=== PATIENT | male | born 1975 | race African-American/Black ===

== ENCOUNTER 2018-10-31 20:21 | Inpatient (IN) | payer OTHER ==
--- NOTE | 2018-10-31 20:42 | PDOC ---
Rapid Medical Evaluation Time Seen by Provider: 10/31/18 20:34 Medical Evaluation: 10/31/18 20:36 I have performed a brief in-person evaluation of this patient. The patient presents with a chief complaint of: Sent in by Dr Eckert for admission for MS flare. Per call in, pt to get solu-medrol Q6H x 3 days and to be admitted. Dr Eckert to be consulted. Pt saw Dr Eckert for first time today and was c/o feeling off balance w/ ataxia and feeling tingling in his feet, c/w his MS per pt. Ran out of meds 4 months ago and never refilled as he has been busy caring for his mother who recently passed. Recently;y moved to [place] from [place] Pertinent physical exam findings:stable, rest of exam deferred to ED provider I have ordered the following:labs/steroids The patient will proceed to the ED for further evaluation. Discharge Disposition - Diagnosis Ataxia - Referrals - Patient Instructions - Post Discharge Activity
[2018-10-31] MEDS ORDERED: methylPREDNISolone NA SUCC 125 MG/2 ML VIAL ONE (21:07)
--- NOTE | 2018-10-31 21:28 | PDOC ---
History of Present Illness - General Chief Complaint: CVA/TIA Stated Complaint: MULTIPLE SCLEROSIS Time Seen by Provider: 10/31/18 20:34 - History of Present Illness Initial Comments: Mr. Varghese is a 43 y/o male with hx of MS (dx 2010), presenting today with six months of worsening blurry vision, imbalance, urinary retention/incontinence, muscle weakness. He recently moved from [place] where he was following with a neurologist and established care with Dr. Eckert today. Sent in by Dr. Eckert for MS exacerbation and admission. He has not been able to consistently take his MS medications over the past several months. 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 Reports weakness. HEAD, EYES, EARS, NOSE AND THROAT: Reports blurry vision. No change in hearing. No sore throat._ CARDIOVASCULAR: No chest pain or shortness of breath_ RESPIRATORY: Denies cough, hemoptysis_ GASTROINTESTINAL: No nausea, vomiting, diarrhea or constipation._ GENITOURINARY: Reports urinary retention and incontinence. MUSCULOSKELETAL: No joint or muscle swelling or pain. No neck or back pain._ SKIN: No rash_ NEUROLOGIC: No headache, vertigo, loss of consciousness. Reports imbalance. ENDOCRINE: No increased thirst. No abnormal weight change_ HEMATOLOGIC/LYMPHATIC: No anemia, easy bleeding, or history of blood clots._ ALLERGIC/IMMUNOLOGIC: No hives or skin allergy._ *Physical Exam - Vital Signs Last Vital Signs Temp Pulse Resp BP Pulse Ox 97.6 F 75 18 116/60 99 10/31/18 20:38 10/31/18 20:38 10/31/18 20:38 10/31/18 20:38 10/31/18 20:38 - Physical Exam Comments: PE GENERAL: Awake, alert, and oriented to person/place/time, in no acute distress_ HEAD: No signs of trauma, normocephalic, atraumatic _ EYES: PERRLA, EOMI, sclera anicteric, conjunctiva clear_ ENT: Hearing grossly normal, nares patent, oropharynx clear without exudates. No uvular deviation. Moist mucosa_ NECK: Normal ROM, supple, no lymphadenopathy, JVD, or masses_ LUNGS: No distress, speaks in full sentences, clear to auscultation bilaterally _ HEART: Regular rate and rhythm, normal S1 and S2, no murmurs appreciated, peripheral pulses normal and equal bilaterally._ ABDOMEN: Soft, pressure on palpation in suprapubic area, normoactive bowel sounds. No guarding, no rebound. No masses_ EXTREMITIES: Normal inspection, Normal range of motion, no edema. No clubbing or cyanosis_ SKIN: Warm, Dry, normal turgor, no rashes or lesions noted_ NEURO CN II-XII tested and intact. Sensation intact to sharp/dull differentiation in all extremities. Motor: Normal tone and bulk. No abnormal movements appreciated. No pronator drift. Strength tested and 4/5 in bilateral wrist flexion/extension, elbow flexion/extension, shoulder abduction, straight leg raise, knee flexion/ extension, ankle dorsiflexion/plantarflexion. Patient has unsteady ambulation and walks with a cane. Coordination: Finger to nose and heel to hendricks testing intact bilaterally. Heart Score/ECG Review - ECG Intrepretation Rhythm: Regular Rhythm Comment:: 62 bpm - [place]: Normal - ECG Impressions Normal ECG: Yes Non-specific ST Elevation: No Ischemic Changes: No Bradycardia: No ED Treatment Course - LABORATORY CBC & Chemistry Diagram: 10/31/18 21:07 10/31/18 21:07 Medical Decision Making - Medical Decision Making 43M with hx of MS diagnosis in 2010, presenting with worsening blurry vision, imbalance, weakness, urinary incontinence/retention. Recently moved from [place] and established care with Dr. Eckert (neurologist) today. Sent in by Dr. Eckert for admission for MS exacerbation. -CBC, CMP, UA, EKG, CXR for admission -solumedrol 250 mg q6h 10/31/18 22:08 Labs and UA reviewed and wnl. *DC/Admit/Observation/Transfer Diagnosis at time of Disposition: Ataxia - Discharge Dispostion Condition at time of disposition: Stable Decision to Admit order: Yes - Referrals Referrals: Teetee Kelley MD [Primary Care Provider] - - Patient Instructions - Post Discharge Activity
[2018-10-31 21:29] LABS: BASO % 0.6 % (0-2.0); EOS % 2.3 % (0-4.5); HEMATOCRIT 40.4 % (35.4-49); LYMPH % 36.4 % (8-40); MCH 30.5 pg (25.7-33.7); MCHC 34.7 g/dl (32.0-35.9); MEAN CELL VOLUME 87.8 fl (80-96); MEAN PLT VOLUME 6.4 fl (7.5-11.1); MONO % 9.9 % (3.8-10.2); NEUT % 50.8 % (42.8-82.8); PLATELET COUNT 271 K/MM3 (134-434); RBC 4.59 M/mm3 (4.00-5.60); RDW 13.1 % (11.9-15.9)
[2018-10-31] MEDS: methylPREDNISolone NA SUCC 125 MG/2 ML VIAL IVPUSH SCH (21:30)
[2018-10-31 21:57] LABS: URINE APPEARANCE CLEAR; URINE BILIRUBIN NEGATIVE (NEGATIVE); URINE COLOR YELLOW; URINE GLUCOSE (UA) NEGATIVE (NEGATIVE); URINE KETONE TRACE (NEGATIVE); URINE LEUK ESTERASE NEGATIVE (NEGATIVE); URINE NITRITE NEGATIVE (NEGATIVE); URINE PROTEIN NEGATIVE (NEGATIVE)
[2018-10-31 21:58] LABS: ALBUMIN 4.1 g/dl (3.4-5.0); CALCIUM 9.4 mg/dL (8.5-10.1); CREATININE 1.1 mg/dL (0.55-1.3); POTASSIUM 3.9 mmol/L (3.5-5.1); TOT PROT 6.7 g/dl (6.4-8.2)
--- NOTE | 2018-10-31 23:43 | PN ---
Teaching Attending Note Name of Resident: Tish Miller ATTENDING PHYSICIAN STATEMENT I saw and evaluated the patient. I reviewed the resident's note and discussed the case with the resident. I agree with the resident's findings and plan as documented. SUBJECTIVE: Patient is a 43 year old man with a PMH of MS (was on tecfidera, intermittent compliance for the past 6 months), who was sent to the ER by Dr. Eckert for further management for MS. The patient reports hes been having 6 months of worsening blurry vision, weakness, lower extremity numbness-tingling, and urinary incontinence. The patient was seen at Dr. Davis office earlier today , from where he was sent to the emergency department for further management. Patient moved to [place] about 6 months ago from [place] and since then hes been poorly compliant with his medication. Denies fever, chills, nausea, vomiting, diarrhea, dysuria or hematuria. Denies alcohol abuse or use of illicit drugs. Nonsmoker. OBJECTIVE: Alert Vital Signs Period Temp Pulse Resp BP Sys/Wong Pulse Ox Last 24 Hr 97.6 F 72-75 16-18 116-125/60-65 99-99 HEENT: No Jaundice, eye redness or discharge, PERRLA, EOMI. Normocephalic, atraumatic. External ears are normal and hearing is grossly intact. No nasal discharge. Neck: Supple, nontender. No palpable adenopathy or thyromegaly. No JVD Chest: Good effort. Clear to auscultation and percussion. Heart: Regular. No S3, rub or murmur Abdomen: Not distended, soft, nontender and no HSM. No rebound or guarding. Normal bowel sounds. Ext: Peripheral pulses intact. No leg edema. Skin: Warm and dry. No petechiae, rash or ecchymosis. Neuro: Alert. Oriented x3. CN 2-12 grossly intact. Sensation grossly intact in all four extremities and DTR are symmetric. Psych: Appropriate mood and affect. Good insight. Current Medications Generic Name Dose Route Start Last Admin Trade Name Freq PRN Reason Stop Dose Admin Enoxaparin Sodium 40 mg 11/01/18 10:00 Lovenox - SQ DAILY [facility] Methylprednisolone Sodium Succinate 250 mg 10/31/18 20:45 10/31/18 21:30 Solu-Medrol - IVPUSH 250 mg Q6H ARLENE Administration Abnormal Lab Results 10/31/18 10/31/18 10/31/18 21:07 21:07 21:07 MPV 6.4 L Chloride 108 H Anion Gap 4 L Urine Ketones Trace H ASSESSMENT AND PLAN: 1. Multiple sclerosis flareup - Patient started on Solumedrol 250 mg IV q 6 hours as recommended by the Neurologist. Will give Protonix 40 mg PO qd. No acute abnormality on CXR. EKG shows NSR with no significant ST-T wave changes. 2. Overweight Counseled on the risks associated with being overweight. Will provide patient all the necessary assistance, counseling and positive reinforcement to facilitate weight loss. Consult sales data analyst. 3. DVT prophylaxis - Lovenox 40 mg SQ q 24 hours. 4. Advance directives - Full code
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
[2018-11-01 01:56] VITALS: BMI 28.8
[2018-11-01] MEDS: methylPREDNISolone NA SUCC 125 MG/2 ML VIAL IVPUSH SCH ×4 (02:54→20:57)
[2018-11-01] MEDS ORDERED: PT OWN MED DRAWER 7, Y5N ONE (04:23)
[2018-11-01 08:21] LABS: BASO % 0.2 % (0-2.0); HEMATOCRIT 43.6 % (35.4-49); HEMOGLOBIN 14.8 GM/dL (11.7-16.9); LYMPH % 10.6 % (8-40); MCH 30.3 pg (25.7-33.7); MEAN CELL VOLUME 89.2 fl (80-96); MEAN PLT VOLUME 7.1 fl (7.5-11.1); MONO % 0.5 % (3.8-10.2); NEUT % 88.7 % (42.8-82.8); PLATELET COUNT 293 K/MM3 (134-434); RBC 4.89 M/mm3 (4.00-5.60); RDW 12.8 % (11.9-15.9); WHITE BLOOD COUNT 4.8 K/mm3 (4.0-10.0)
[2018-11-01 09:01] LABS: ALBUMIN 4.2 g/dl (3.4-5.0); BILIRUBIN,TOTAL 0.9 mg/dL (0.2-1); BLOOD UREA NITROGEN 13.6 mg/dL (7-18); CALCIUM 9.4 mg/dL (8.5-10.1); CREATININE 1.1 mg/dL (0.55-1.3); MAGNESIUM 2.2 mg/dL (1.8-2.4); POTASSIUM 4.1 mmol/L (3.5-5.1)
[2018-11-01] MEDS: ENOXAPARIN NA (PORCINE) 40 MG/0.4 ML DISP.SYRIN SQ SCH (10:01)
--- NOTE | 2018-11-01 10:11 | CON.NEURO ---
Consult - History of Present Illness History of Present Illness: 43 year old man with a PMH of MS (was on tecfidera, intermittent compliance for the past 6 months), who was sent by me first time yesetrday in office for further management for MS. The patient reports hes been having 6 months of worsening blurry vision, weakness, lower extremity numbness-tingling, and urinary incontinence. Patient moved to [place] about 6 months ago from [place] and hasd been on Tecfidera sincve 2012 but ran out of RX apx 2 months ago. Denies fever, chills, nausea, vomiting, diarrhea, dysuria or hematuria. Denies alcohol abuse or use of illicit drugs. Nonsmoker. ++ walking disability, and now needs cane. - Alcohol/Substance Use Hx Alcohol Use: No - Smoking History Smoking history: Never smoked Have you smoked in the past 12 months: No Home Medications - Allergies Allergies/Adverse Reactions: Allergies Allergy/AdvReac Type Severity Reaction Status Date / Time No Known Allergies Allergy Verified 10/31/18 20:42 Physical Exam-Neuro Vital Signs: Vital Signs Temperature 98.2 F 11/01/18 06:09 Pulse Rate 78 11/01/18 06:09 Respiratory Rate 18 11/01/18 06:09 Blood Pressure 109/73 11/01/18 06:09 O2 Sat by Pulse Oximetry (%) 95 11/01/18 06:00 Constitutional: Yes: Well Nourished, No Distress Labs: CBC, BMP 11/01/18 06:20 11/01/18 06:20 - Neuro Exam Level Of Consciousness: Yes: Alert, Oriented to Person (EOmi, no facial, motor 5 /5, inc tone in legs, L >R, brisk reflexes , and requires assitance when he walks ) Problem List - Problems (1) Multiple sclerosis exacerbation Code(s): G35 - MULTIPLE SCLEROSIS (2) Gait abnormality Code(s): R26.9 - UNSPECIFIED ABNORMALITIES OF GAIT AND MOBILITY Assessment/Plan 43 year old man with a PMH of MS (was on tecfidera, intermittent compliance for the past 6 months), who was sent by me first time yesetrday in office for further management for MS. The patient reports hes been having 6 months of worsening blurry vision, weakness, lower extremity numbness-tingling, and urinary incontinence. Patient moved to [place] about 6 months ago from [place] and hasd been on Tecfidera sincve 2012 but ran out of RX apx 2 months ago. Denies fever, chills, nausea, vomiting, diarrhea, dysuria or hematuria. Denies alcohol abuse or use of illicit drugs. Nonsmoker. ++ walking disability, and now needs cane. AP : MS exacerbation, progressive vs relapse started on SOlumedrol IV 250IV q6 x 5 days check MRI BRAIN, C , T spine with VANDA JCV titers, NMO AB, TSH, SKY , ESR, LYme rehab as out pt will decide which immunomodulator to restart Ocreveus vs Mayzent vs Tyzabri DR DAVIS
--- NOTE | 2018-11-01 11:33 | EKG ---
Test Reason : Blood Pressure : / mmHG Vent. Rate : 062 BPM Atrial Rate : 062 BPM P-R Int : 146 ms QRS Dur : 088 ms QT Int : 364 ms P-R-T Axes : 058 052 053 degrees QTc Int : 369 ms NORMAL SINUS RHYTHM NORMAL ECG NO PREVIOUS ECGS AVAILABLE Confirmed by ELEONORA MARQUIS MD ([id number]) on 11/01/2018 11:33:38 AM Referred By: Confirmed By:ELEONORA MARQUIS MD
[2018-11-01] MEDS: GABAPENTIN 300 MG CAPSULE (FP) PO SCH ×2 (11:36→21:00)
--- NOTE | 2018-11-01 13:09 | PN ---
Physical Exam: SUBJECTIVE: Patient seen and examined, overall unchanged, still with left forearm/left leg tingling/numbness, blurry vision and some weakness. OBJECTIVE: Vital Signs Period Temp Pulse Resp BP Sys/Wong Pulse Ox Last 24 Hr 97.5 F-98.2 F 72-78 16-18 109-125/60-80 95-99 Intake & Output 10/29/18 10/30/18 10/31/18 11/01/18 23:59 23:59 23:59 23:59 Intake Total 10 Balance 10 Weight 208 lb 206 lb 6.4 oz GENERAL: lying in bed in no acute distress HEENT: PERRL, EOMI Neck: soft, supple, no JVD Chest: CTAB, no rales or wheezing Abdomen:soft, NT, ND extremities: no edema Neuro: AAOx3, PERRL, EOMI, facial symmetry, speech normal, tongue midline, power 5/5, decreased sensation over left face/left forearm/hand and left leg region, gait not observed Laboratory Results - last 24 hr 10/31/18 10/31/18 10/31/18 21:07 21:07 21:07 WBC 5.0 RBC 4.59 Hgb 14.0 Hct 40.4 MCV 87.8 MCH 30.5 MCHC 34.7 RDW 13.1 Plt Count 271 MPV 6.4 L Absolute Neuts (auto) 2.5 Neutrophils % 50.8 Lymphocytes % 36.4 Monocytes % 9.9 Eosinophils % 2.3 Basophils % 0.6 Nucleated RBC % 0 Sodium 140 Potassium 3.9 Chloride 108 H Carbon Dioxide 29 Anion Gap 4 L BUN 12.0 Creatinine 1.1 Est GFR (CKD-EPI)AfAm 93.47 Est GFR (CKD-EPI)NonAf 80.64 Random Glucose 89 Calcium 9.4 Magnesium Total Bilirubin 1.0 AST 18 ALT 44 Alkaline Phosphatase 80 Total Protein 6.7 Albumin 4.1 Urine Color Yellow Urine Appearance Clear Urine pH 7.0 Ur Specific [place] 1.024 Urine Protein Negative Urine Glucose (UA) Negative Urine Ketones Trace H Urine Blood Negative Urine Nitrite Negative Urine Bilirubin Negative Urine Urobilinogen 1.0 Ur Leukocyte Esterase Negative 11/01/18 11/01/18 06:20 06:20 WBC 4.8 RBC 4.89 Hgb 14.8 Hct 43.6 MCV 89.2 MCH 30.3 MCHC 34.0 RDW 12.8 Plt Count 293 MPV 7.1 L D Absolute Neuts (auto) 4.3 Neutrophils % 88.7 H D Lymphocytes % 10.6 D Monocytes % 0.5 L D Eosinophils % 0.0 D Basophils % 0.2 Nucleated RBC % 0 Sodium 138 Potassium 4.1 Chloride 104 Carbon Dioxide 28 Anion Gap 5 L BUN 13.6 Creatinine 1.1 Est GFR (CKD-EPI)AfAm 93.47 Est GFR (CKD-EPI)NonAf 80.64 Random Glucose 156 H Calcium 9.4 Magnesium 2.2 Total Bilirubin 0.9 AST 19 ALT 45 Alkaline Phosphatase 94 Total Protein 7.0 Albumin 4.2 Urine Color Urine Appearance Urine pH Ur Specific [place] Urine Protein Urine Glucose (UA) Urine Ketones Urine Blood Urine Nitrite Urine Bilirubin Urine Urobilinogen Ur Leukocyte Esterase Active Medications Generic Name Dose Route Start Last Admin Trade Name Freq PRN Reason Stop Dose Admin Enoxaparin Sodium 40 mg 11/01/18 10:00 11/01/18 10:01 Lovenox - SQ 40 mg DAILY ARLENE Administration Gabapentin 300 mg 11/01/18 11:00 11/01/18 11:36 Neurontin - PO 300 mg BID ARLENE Administration Melatonin 3 mg 11/01/18 04:04 Melatonin PO HS PRN INSOMNIA Methylprednisolone Sodium Succinate 250 mg 10/31/18 20:45 11/01/18 08:25 Solu-Medrol - IVPUSH 250 mg Q6H ARLENE Administration ASSESSMENT/PLAN: 43 yom with PMHx of Multiple Sclerosis (2001) prior on tecfidera, recently lost to follow up sent by Dr. Eckert with concerns for MS flare -Multiple sclerosis flare vs progressive disease Plan: Neurology input noted. Solumedrol 250 mg IV q6h x 5 days. Follow up MRI brain/C-spine/T-spine. JCV titers, NMO Ab, TSH, SKY, ESR, lyme DVTPPx Lovenox PT eval Outaptient follow up for immunomodulator. dispo home vs SNF based on clinical course. Visit type - Emergency Visit Emergency Visit: Yes ED Registration Date: 10/31/18 Care time: The patient presented to the Emergency Department on the above date and was hospitalized for further evaluation of their emergent condition. - New Patient This patient is new to me today: Yes Date on this admission: 11/01/18 - Critical Care Critical Care patient: No - Discharge Referral Referred to [facility] No
[2018-11-01] MEDS: ACETAMINOPHEN 325 MG TABLET (FP) PO PRN (15:33)
[2018-11-01] MEDS ORDERED: IBUPROFEN 400 MG TABLET (FP) PO ONE (21:37)
[2018-11-01] MEDS ORDERED: IBUPROFEN 200 MG TABLET PO ONE (22:00)
[2018-11-01] MEDS ORDERED: MELATONIN 1 MG TABLET PO SCH (22:00)
[2018-11-01] MEDS: MELATONIN 1 MG TABLET PO PRN (23:48)
[2018-11-02] MEDS: methylPREDNISolone NA SUCC 125 MG/2 ML VIAL IVPUSH SCH ×4 (02:30→21:14)
[2018-11-02] MEDS ORDERED: PT OWN MED DRAWER 7, Y5N ONE (08:59)
[2018-11-02] MEDS: GABAPENTIN 300 MG CAPSULE (FP) PO SCH ×2 (09:07→22:41)
[2018-11-02] MEDS: PANTOPRAZOLE 40 MG TABLET (FP) PO SCH (09:07)
[2018-11-02] MEDS: ENOXAPARIN NA (PORCINE) 40 MG/0.4 ML DISP.SYRIN SQ SCH (09:14)
[2018-11-02] MEDS: ACETAMINOPHEN 325 MG TABLET (FP) PO PRN ×2 (10:43→22:42)
[2018-11-02] MEDS: MAG HYDROX/AL HYDROX/SIMETH 30 ML UNIT-DOSE CUP PO PRN ×2 (10:43→19:31)
--- NOTE | 2018-11-02 11:00 | PN ---
Progress Note (short form) - Note Progress Note: 43 year old man with a PMH of MS (was on tecfidera, intermittent compliance for the past 6 months), who was sent by me first time yesetrday in office for further management for MS. The patient reports hes been having 6 months of worsening blurry vision, weakness, lower extremity numbness-tingling, and urinary incontinence. Patient moved to [place] about 6 months ago from [place] and hasd been on Tecfidera sincve 2012 but ran out of RX apx 2 months ago. Denies fever, chills, nausea, vomiting, diarrhea, dysuria or hematuria. Denies alcohol abuse or use of illicit drugs. Nonsmoker. ++ walking disability, and now needs cane. 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 - Alcohol/Substance Use Hx Alcohol Use: No - Smoking History Smoking history: Never smoked Have you smoked in the past 12 months: No Home Medications - Allergies Allergies/Adverse Reactions: Allergies Allergy/AdvReac Type Severity Reaction Status Date / Time No Known Allergies Allergy Verified 10/31/18 20:42 Physical Exam-Neuro Vital Signs: Vital Signs Temperature 98.2 F 11/01/18 06:09 Pulse Rate 78 11/01/18 06:09 Respiratory Rate 18 11/01/18 06:09 Blood Pressure 109/73 11/01/18 06:09 O2 Sat by Pulse Oximetry (%) 95 11/01/18 06:00 Constitutional: Yes: Well Nourished, No Distress Labs: CBC, BMP 11/01/18 06:20 11/01/18 06:20 - Neuro Exam Level Of Consciousness: Yes: Alert, Oriented to Person (EOmi, no facial, motor 5 /5, inc tone in legs, L >R, brisk reflexes , and requires assitance when he walks ) Problem List - Problems (1) Multiple sclerosis exacerbation Code(s): G35 - MULTIPLE SCLEROSIS (2) Gait abnormality Code(s): R26.9 - UNSPECIFIED ABNORMALITIES OF GAIT AND MOBILITY Assessment/Plan 43 year old man with a PMH of MS (was on tecfidera, intermittent compliance for the past 6 months), who was sent by me first time yesetrday in office for further management for MS. The patient reports hes been having 6 months of worsening blurry vision, weakness, lower extremity numbness-tingling, and urinary incontinence. Patient moved to [place] about 6 months ago from [place] and hasd been on Tecfidera sincve 2012 but ran out of RX apx 2 months ago. Denies fever, chills, nausea, vomiting, diarrhea, dysuria or hematuria. Denies alcohol abuse or use of illicit drugs. Nonsmoker. ++ walking disability, and now needs cane. 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
--- NOTE | 2018-11-02 11:23 | EKG ---
Test Reason : Blood Pressure : / mmHG Vent. Rate : 077 BPM Atrial Rate : 077 BPM P-R Int : 144 ms QRS Dur : 096 ms QT Int : 340 ms P-R-T Axes : 067 062 063 degrees QTc Int : 384 ms NORMAL SINUS RHYTHM NORMAL ECG WHEN COMPARED WITH ECG OF 31-OCT-2018 20:54, NO SIGNIFICANT CHANGE WAS FOUND Confirmed by ELEONORA MARQUIS MD ([id number]) on 11/02/2018 11:23:42 AM Referred By: Lila TRACEY Confirmed By:ELEONORA MARQUIS MD
--- NOTE | 2018-11-02 11:59 | PN ---
Physical Exam: SUBJECTIVE: Patient seen and examined, tingling/numbness improved. reports some low back pain. But overall better, ambulating. OBJECTIVE: Vital Signs Period Temp Pulse Resp BP Sys/Wong Pulse Ox Last 24 Hr 97.9 F-98.5 F 74-93 18-18 118-138/68-78 96-96 Intake & Output 10/30/18 10/31/18 11/01/18 11/02/18 23:59 23:59 23:59 23:59 Intake Total 810 360 Balance 810 360 Weight 208 lb 206 lb 6.4 oz GENERAL: lying in bed in no acute distress HEENT: PERRL, EOMI Neck: soft, supple, no JVD Chest: CTAB, no rales or wheezing Abdomen:soft, NT, ND extremities: no edema Neuro: AAOx3, PERRL, EOMI, facial symmetry, speech normal, tongue midline, power 5/5, decreased sensation over left face/left forearm/hand and left leg region but improved exam per patient, gait not observed Active Medications Generic Name Dose Route Start Last Admin Trade Name Freq PRN Reason Stop Dose Admin Acetaminophen 650 mg 11/01/18 14:43 11/02/18 10:43 Tylenol - PO 650 mg Q6H PRN Administration HEADACHE Al Hydroxide/Mg Hydroxide 30 ml 11/02/18 10:03 11/02/18 10:43 Mylanta Oral Suspension - PO 30 ml Q6H PRN Administration DYSPEPSIA Enoxaparin Sodium 40 mg 11/01/18 10:00 11/02/18 09:14 Lovenox - SQ 40 mg DAILY ARLENE Administration Gabapentin 300 mg 11/01/18 11:00 11/02/18 09:07 Neurontin - PO 300 mg BID ARLENE Administration Melatonin 3 mg 11/01/18 04:04 11/01/18 23:48 Melatonin PO 3 mg HS PRN Administration INSOMNIA Methylprednisolone Sodium Succinate 250 mg 10/31/18 20:45 11/02/18 09:13 Solu-Medrol - IVPUSH 250 mg Q6H ARLENE Administration Pantoprazole Sodium 40 mg 11/02/18 10:00 11/02/18 09:07 Protonix - PO 40 mg DAILY ARLENE Administration ASSESSMENT/PLAN: 43 yom with PMHx of Multiple Sclerosis (2001) prior on tecfidera, recently lost to follow up sent by Dr. Eckert with concerns for MS flare -Multiple sclerosis flare vs progressive disease -GERD Plan: Neurology input noted. Solumedrol 250 mg IV q6h x 5 days. Follow up MRI brain/C-spine/T-spine. Follow up JCV titers, NMO Ab, TSH, SKY, ESR, lyme Add PPI/Maalox DVTPPx Lovenox PT eval Outaptient follow up for immunomodulator. dispo home vs SNF based on clinical course. Discussed with patient and nursing. Visit type - Emergency Visit Emergency Visit: Yes ED Registration Date: 10/31/18 Care time: The patient presented to the Emergency Department on the above date and was hospitalized for further evaluation of their emergent condition. - New Patient This patient is new to me today: No - Critical Care Critical Care patient: No - Discharge Referral Referred to [facility] No
[2018-11-02] MEDS: MELATONIN 1 MG TABLET PO PRN (22:42)
[2018-11-03] MEDS: methylPREDNISolone NA SUCC 125 MG/2 ML VIAL IVPUSH SCH ×4 (02:06→20:59)
[2018-11-03] MEDS ORDERED: ACETAMINOPHEN 1000 MG/100 ML VIAL (NON FORMULARY) IVPB ONE (04:01)
[2018-11-03] MEDS: ENOXAPARIN NA (PORCINE) 40 MG/0.4 ML DISP.SYRIN SQ SCH (10:10)
[2018-11-03] MEDS: GABAPENTIN 300 MG CAPSULE (FP) PO SCH (10:11)
[2018-11-03] MEDS: PANTOPRAZOLE 40 MG TABLET (FP) PO SCH (10:11)
[2018-11-03] MEDS: ACETAMINOPHEN 325 MG TABLET (FP) PO PRN (10:13)
[2018-11-03] MEDS ORDERED: LORazepam 2 MG/ML SDV VIAL IVPUSH ONE (11:58)
[2018-11-03] MEDS ORDERED: diazePAM 5 MG TABLET PO ONE (12:27)
--- NOTE | 2018-11-03 12:30 | PN ---
Progress Note (short form) - Note Progress Note: 43 year old man with a PMH of MS (was on tecfidera, intermittent compliance for the past 6 months), who was sent by me first time yesetrday in office for further management for MS. The patient reports hes been having 6 months of worsening blurry vision, weakness, lower extremity numbness-tingling, and urinary incontinence. Patient moved to [place] about 6 months ago from [place] and hasd been on Tecfidera sincve 2012 but ran out of RX apx 2 months ago. Denies fever, chills, nausea, vomiting, diarrhea, dysuria or hematuria. Denies alcohol abuse or use of illicit drugs. Nonsmoker. ++ walking disability, and now needs cane. 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 No evidence of cervical disc herniation or cord compression. Impression: Extensive demyelinating disease both cerebral hemispheres prominent centrum semiovale. No evidence acute infarct No suspicious enhancing active demyelinating plaques. No evidence acute intracerebral hemorrhage, subdural fluid collection or hydrocephalus. Large left maxillary sinus submucosal retention cyst sequela of sinusitis. Please note no prior MRI of the brain available for comparison when available an addendum will be dictated.. - Alcohol/Substance Use Hx Alcohol Use: No - Smoking History Smoking history: Never smoked Have you smoked in the past 12 months: No Home Medications - Allergies Allergies/Adverse Reactions: Allergies Allergy/AdvReac Type Severity Reaction Status Date / Time No Known Allergies Allergy Verified 10/31/18 20:42 Physical Exam-Neuro Vital Signs: Vital Signs Temperature 98.0 F 11/02/18 22:00 Pulse Rate 88 11/02/18 22:00 Respiratory Rate 18 11/02/18 22:00 Blood Pressure 128/71 11/02/18 22:00 O2 Sat by Pulse Oximetry (%) 96 11/02/18 21:00 Constitutional: Yes: Well Nourished, No Distress Labs: CBCD WBC 4.8 K/mm3 (4.0-10.0) 11/01/18 06:20 RBC 4.89 M/mm3 (4.00-5.60) 11/01/18 06:20 Hgb 14.8 GM/dL (11.7-16.9) 11/01/18 06:20 Hct 43.6 % (35.4-49) 11/01/18 06:20 MCV 89.2 fl (80-96) 11/01/18 06:20 MCHC 34.0 g/dl (32.0-35.9) 11/01/18 06:20 RDW 12.8 % (11.9-15.9) 11/01/18 06:20 Plt Count 293 K/MM3 (134-434) 11/01/18 06:20 MPV 7.1 fl (7.5-11.1) L D 11/01/18 06:20 CMP Sodium 138 mmol/L (136-145) 11/01/18 06:20 Potassium 4.1 mmol/L (3.5-5.1) 11/01/18 06:20 Chloride 104 mmol/L (98-107) 11/01/18 06:20 Carbon Dioxide 28 mmol/L (21-32) 11/01/18 06:20 Anion Gap 5 MMOL/L (8-16) L 11/01/18 06:20 BUN 13.6 mg/dL (7-18) 11/01/18 06:20 Creatinine 1.1 mg/dL (0.55-1.3) 11/01/18 06:20 Calcium 9.4 mg/dL (8.5-10.1) 11/01/18 06:20 Total Bilirubin 0.9 mg/dL (0.2-1) 11/01/18 06:20 AST 19 U/L (15-37) 11/01/18 06:20 ALT 45 U/L (13-61) 11/01/18 06:20 Alkaline Phosphatase 94 U/L (45-117) 11/01/18 06:20 Total Protein 7.0 g/dl (6.4-8.2) 11/01/18 06:20 Albumin 4.2 g/dl (3.4-5.0) 11/01/18 06:20 - Neuro Exam Level Of Consciousness: Yes: Alert, Oriented to Person (EOmi, no facial, motor 5 /5, inc tone in legs, L >R, brisk reflexes , and requires assitance when he walks ) Problem List - Problems (1) Multiple sclerosis exacerbation Code(s): G35 - MULTIPLE SCLEROSIS (2) Gait abnormality Code(s): R26.9 - UNSPECIFIED ABNORMALITIES OF GAIT AND MOBILITY Assessment/Plan 43 year old man with a PMH of MS (was on tecfidera, intermittent compliance for the past 6 months), who was sent by me first time yesetrday in office for further management for MS. The patient reports hes been having 6 months of worsening blurry vision, weakness, lower extremity numbness-tingling, and urinary incontinence. Patient moved to [place] about 6 months ago from [place] and hasd been on Tecfidera sincve 2012 but ran out of RX apx 2 months ago. Denies fever, chills, nausea, vomiting, diarrhea, dysuria or hematuria. Denies alcohol abuse or use of illicit drugs. Nonsmoker. ++ walking disability, and now needs cane. 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 started on SOlumedrol IV 250IV q6 x 5 days MRI BRAIN, C , T spine with VANDA--multifocal diffuse signal chnages in MRI C spine more suggestive of NMO disease await T spine and get MRI LS SPINE --r/o DJD factors for low back pain , premeditate with valium INC gabapentin 600BID JCV titers, NMO AB, TSH, SKY , ESR, LYme --P rehab as out pt will decide which immunomodulator to restart Ocreveus vs Mayzent vs Tyzabri DR DAVIS Problem List - Problems (1) Multiple sclerosis exacerbation Code(s): G35 - MULTIPLE SCLEROSIS (2) Gait abnormality Code(s): R26.9 - UNSPECIFIED ABNORMALITIES OF GAIT AND MOBILITY
--- NOTE | 2018-11-03 13:14 | PN ---
Physical Exam: SUBJECTIVE: Patient seen and examined at bedside. States symptoms are improving , but still not at baseline. OBJECTIVE: Vital Signs Period Temp Pulse Resp BP Sys/Wong Pulse Ox Last 24 Hr 97.9 F-98.8 F 88-93 18-20 119-143/71-86 96 GEN: NAD, AAOx3 HEENT: NCAT, EOMI Neck: supple, no jvd Cardio: RRR, normal s1s2, no mrg Pulm: cta b/l Abd: soft, nontender, nondistended Ext: 2+ pulses, no edema Neuro: strength 3/5 LUE, LLE, 4/5 RUE, RLE, sensation decreased on R side, Hyperreflexic R compared to L Laboratory Results - last 24 hr 11/03/18 06:18 ESR 3 Active Medications Generic Name Dose Route Start Last Admin Trade Name Freq PRN Reason Stop Dose Admin Acetaminophen 650 mg 11/01/18 14:43 11/03/18 10:13 Tylenol - PO 650 mg Q6H PRN Administration HEADACHE Al Hydroxide/Mg Hydroxide 30 ml 11/02/18 10:03 11/02/18 19:31 Mylanta Oral Suspension - PO 30 ml Q6H PRN Administration DYSPEPSIA Diazepam 5 mg 11/03/18 12:27 Valium - PO 11/03/18 12:28 ONCE ONE Enoxaparin Sodium 40 mg 11/01/18 10:00 11/03/18 10:10 Lovenox - SQ 40 mg DAILY ARLENE Administration Lorazepam 0.25 mg 11/03/18 11:58 Ativan Injection - IVPUSH 11/03/18 11:59 ONCE ONE Melatonin 3 mg 11/01/18 04:04 11/02/18 22:42 Melatonin PO 3 mg HS PRN Administration INSOMNIA Methylprednisolone Sodium Succinate 250 mg 10/31/18 20:45 11/03/18 10:10 Solu-Medrol - IVPUSH 250 mg Q6H ARLENE Administration Pantoprazole Sodium 40 mg 11/02/18 10:00 11/03/18 10:11 Protonix - PO 40 mg DAILY ARLENE Administration ASSESSMENT/PLAN: 43M with hx of MS diagnosis in 2010, presenting with worsening blurry vision, imbalance, weakness, urinary incontinence/retention. Recently moved from [place] and established care with Dr. Eckert (neurologist) today. # MS Flare - Neuro on board, Dr. Eckert - Deja-Medrol 250mg IVPUSH q6h - Neuro checks q6h - Brain MRI and Cervical / Thoracic spine MRI with contrast showing extensive lesions -Neuromyelitis Optica screen pending -Lyme pending #Insomnia -Melatonin qHS for sleep #FEN - PO fluids - replete lytes PRN - regular diet #PPx - Lovenox 40mg SQ daily, encourage ambulation # Dispo: admit to med-surg Visit type - Emergency Visit Emergency Visit: No - New Patient This patient is new to me today: Yes Date on this admission: 11/03/18 - Critical Care Critical Care patient: No ATTENDING PHYSICIAN STATEMENT I saw and evaluated the patient. I reviewed the resident's note and discussed the case with the resident. I agree with the resident's findings and plan as documented. SUBJECTIVE: OBJECTIVE: ASSESSMENT AND PLAN:
--- NOTE | 2018-11-03 14:38 | PN ---
Teaching Attending Note Name of Resident: Leonard Henry ATTENDING PHYSICIAN STATEMENT I saw and evaluated the patient. I reviewed the resident's note and discussed the case with the resident. I agree with the resident's findings and plan as documented with exceptions below. SUBJECTIVE: Patient seen and examined. tingling numbness improved. low back pain but no new weakness, abdominal or urinary symptoms. OBJECTIVE: Vital Signs Period Temp Pulse Resp BP Sys/Wong Pulse Ox Last 24 Hr 97.9 F-98.0 F 73-90 18-18 119-136/71-90 96 Intake & Output 10/31/18 11/01/18 11/02/18 11/03/18 23:59 23:59 23:59 23:59 Intake Total 810 1610 600 Output Total 300 Balance 810 1610 300 Weight 208 lb 206 lb 6.4 oz GENERAL: lying in bed in no acute distress HEENT: PERRL, EOMI Neck: soft, supple, no JVD Chest: CTAB, no rales or wheezing Abdomen:soft, NT, ND extremities: no edema Neuro: AAOx3, PERRL, EOMI, facial symmetry, speech normal, tongue midline, power 5/5, decreased sensation over left forearm/hand and left leg region but improved exam per patient, sensation symmetric face bilaterally, gait not observed Home Medications Medication Instructions Recorded NK [No Known Home Medication] 11/01/18 Active Medications Acetaminophen (Tylenol -) 650 mg PO Q6H PRN PRN Reason: HEADACHE Last Admin: 11/03/18 10:13 Dose: 650 mg Al Hydroxide/Mg Hydroxide (Mylanta Oral Suspension -) 30 ml PO Q6H PRN PRN Reason: DYSPEPSIA Last Admin: 11/02/18 19:31 Dose: 30 ml Enoxaparin Sodium (Lovenox -) 40 mg SQ DAILY ARLENE Last Admin: 11/03/18 10:10 Dose: 40 mg Lorazepam (Ativan Injection -) 0.25 mg IVPUSH ONCE ONE Stop: 11/03/18 11:59 Melatonin (Melatonin) 3 mg PO HS PRN PRN Reason: INSOMNIA Last Admin: 11/02/18 22:42 Dose: 3 mg Methylprednisolone Sodium Succinate (Solu-Medrol -) 250 mg IVPUSH Q6H ARLENE Last Admin: 11/03/18 10:10 Dose: 250 mg Pantoprazole Sodium (Protonix -) 40 mg PO DAILY ARLENE Last Admin: 11/03/18 10:11 Dose: 40 mg Laboratory Results - last 24 hr 11/03/18 06:18 ESR 3 MRI brain/-Cspine results noted ASSESSMENT AND PLAN: 43 yom with PMHx of Multiple Sclerosis (2001) prior on tecfidera, recently lost to follow up sent by Dr. Eckert with concerns for MS flare -Multiple sclerosis exacerbation, progression vs relapse, vs Neuromyelitis Optica spectrum Disorder -Low back pain -GERD Plan: Neurology input noted. Solumedrol 250 mg IV q6h x 5 days. MRI brain/C-spine noted. Follow up MRI T/LS spine. Follow up JCV titers, NMO Ab, TSH, SKY, ESR, lyme PPI/Maalox DVTPPx Lovenox PT eval Outaptient follow up for immunomodulator. Dispo home vs SNF based on clinical course. Discussed with patient and nursing.
[2018-11-04] MEDS ORDERED: GABAPENTIN 300 MG CAPSULE (FP) PO ONE (00:04)
[2018-11-04] MEDS: MELATONIN 1 MG TABLET PO PRN ×2 (00:09→22:56)
[2018-11-04] MEDS: ACETAMINOPHEN 325 MG TABLET (FP) PO PRN ×2 (00:10→12:08)
[2018-11-04] MEDS: methylPREDNISolone NA SUCC 125 MG/2 ML VIAL IVPUSH SCH (02:20)
[2018-11-04 06:31] LABS: HEMATOCRIT 39.2 % (35.4-49); HEMOGLOBIN 13.4 GM/dL (11.7-16.9); MCH 30.2 pg (25.7-33.7); MCHC 34.1 g/dl (32.0-35.9); MEAN CELL VOLUME 88.5 fl (80-96); MEAN PLT VOLUME 7.1 fl (7.5-11.1); PLATELET COUNT 271 K/MM3 (134-434); RBC 4.43 M/mm3 (4.00-5.60); WHITE BLOOD COUNT 8.3 K/mm3 (4.0-10.0)
[2018-11-04 06:55] LABS: BLOOD UREA NITROGEN 23.4 mg/dL (7-18); CALCIUM 8.6 mg/dL (8.5-10.1); POTASSIUM 3.8 mmol/L (3.5-5.1)
[2018-11-04] MEDS: GABAPENTIN 300 MG CAPSULE (FP) PO SCH ×2 (09:41→22:16)
[2018-11-04] MEDS: PANTOPRAZOLE 40 MG TABLET (FP) PO SCH (09:41)
[2018-11-04] MEDS: methylPREDNISolone NA SUCC 125 MG/2 ML VIAL IVPB SCH ×3 (09:42→22:16)
[2018-11-04] MEDS: ENOXAPARIN NA (PORCINE) 40 MG/0.4 ML DISP.SYRIN SQ SCH (09:42)
--- NOTE | 2018-11-04 13:54 | PN ---
Teaching Attending Note Name of Resident: Leonard Henry ATTENDING PHYSICIAN STATEMENT I saw and evaluated the patient. I reviewed the resident's note and discussed the case with the resident. I agree with the resident's findings and plan as documented with exceptions below. SUBJECTIVE: patient seen and examined. variable pains and reports anxiety. states has been on cymbalta, nortriptyline in the past. Wondering if can be resumed on the same. OBJECTIVE: Vital Signs Period Temp Pulse Resp BP Sys/Wong Pulse Ox Last 24 Hr 97.5 F-98.3 F 74-79 18-18 116-150/80-86 96 Intake & Output 11/01/18 11/02/18 11/03/18 11/04/18 23:59 23:59 23:59 23:59 Intake Total 810 1610 800 400 Output Total 600 Balance 810 1610 200 400 Weight 206 lb 6.4 oz GENERAL: lying in bed in no acute distress HEENT: PERRL, EOMI Neck: soft, supple, no JVD Chest: CTAB, no rales or wheezing Abdomen:soft, NT, ND extremities: no edema Neuro: AAOx3, PERRL, EOMI, facial symmetry, speech normal, tongue midline, power 5/5, decreased sensation over left forearm/hand and left leg region but improved exam per patient, sensation symmetric face bilaterally, gait not observed Laboratory Results - last 24 hr 11/04/18 11/04/18 05:40 05:40 WBC 8.3 RBC 4.43 Hgb 13.4 Hct 39.2 MCV 88.5 MCH 30.2 MCHC 34.1 RDW 13.0 Plt Count 271 MPV 7.1 L Sodium 141 Potassium 3.8 Chloride 107 Carbon Dioxide 29 Anion Gap 4 L BUN 23.4 H Creatinine 1.0 Est GFR (CKD-EPI)AfAm 104.88 Est GFR (CKD-EPI)NonAf 90.49 Random Glucose 126 H Calcium 8.6 ASSESSMENT AND PLAN: 43 yom with PMHx of Multiple Sclerosis (2001) prior on tecfidera, recently lost to follow up sent by Dr. Eckert with concerns for MS flare -Multiple sclerosis exacerbation, progression vs relapse, vs Neuromyelitis Optica spectrum Disorder -Low back pain -Depression/anxiety -GERD Plan: Neurology input noted. Solumedrol 250 mg IV q6h x 5 days. MRI brain/C-spine noted. Follow up MRI T/LS spine. Follow up JCV titers, NMO Ab, TSH, SKY, ESR, lyme patient with ongoing anxiety/psych concerns, could be worsened from current high dose steroids. Dr. Alston consult. reconcile prior meds with [facility] pharmacy Cristiano Fleming. Resume accordingly. PPI/Maalox DVTPPx Lovenox PT eval Outaptient follow up for immunomodulator. Dispo home pending clinical improvement. Discussed with patient and nursing.
--- NOTE | 2018-11-04 15:30 | CON.PSL ---
Psychology Consult Consult Specialty:: Neuropsychology History Provided By: Patient Limitations to Obtaining History: No Limitations Current Medications: Active Medications Acetaminophen (Tylenol -) 650 mg PO Q6H PRN PRN Reason: HEADACHE Last Admin: 11/04/18 12:08 Dose: 650 mg Al Hydroxide/Mg Hydroxide (Mylanta Oral Suspension -) 30 ml PO Q6H PRN PRN Reason: DYSPEPSIA Last Admin: 11/02/18 19:31 Dose: 30 ml Enoxaparin Sodium (Lovenox -) 40 mg SQ DAILY [facility] Last Admin: 11/04/18 09:42 Dose: 40 mg Gabapentin (Neurontin -) 600 mg PO BID [facility] Last Admin: 11/04/18 09:41 Dose: 600 mg Lorazepam (Ativan Injection -) 0.25 mg IVPUSH ONCE ONE Stop: 11/03/18 11:59 Melatonin (Melatonin) 3 mg PO HS PRN PRN Reason: INSOMNIA Last Admin: 11/04/18 00:09 Dose: 3 mg Methylprednisolone Sodium Succinate (Solu-Medrol -) 250 mg IVPB Q6H-IV [facility] Last Admin: 11/04/18 14:50 Dose: 250 mg Pantoprazole Sodium (Protonix -) 40 mg PO DAILY [facility] Last Admin: 11/04/18 09:41 Dose: 40 mg Allergies: Allergies Allergy/AdvReac Type Severity Reaction Status Date / Time No Known Allergies Allergy Verified 10/31/18 20:42 Does patient have pain?: Yes Pain Location Body Site: Back Pain Intensity: 10 Hx Alcohol Use: Yes (He states that he no onger will drink but has in the past n occasion.) Hx Substance Use: Yes (Marijuana was prescribed in [place] for his condition. ) Current Medical Exam-Psy Orientation: Time, Person, Place Immediate Term Memory: 3 Expressive: Coherent Receptive: Age Appropriate Comprehension of Spoken Words Hallucinations: Absent Thought Process: Intact Depression: Moderate Hopelessness: Yes (His experiences hopelessness at times but draws himself out of it.) Loss of Interest: No Anxiety Level: Moderate Danger to Self and Others: No Sleep: Poorly Appetite: Good Serial Sevens Intact: No Repeats 3 words told earlier: 03/06 Support System: None (He recently lost his mom who he was attending to during her terminal illness. His father and older brother had (his brother at age 18 from injuries).) Problem List - Problem (1) Anxiety about health Code(s): F41.8 - OTHER SPECIFIED ANXIETY DISORDERS (2) Depression Code(s): F32.9 - MAJOR DEPRESSIVE DISORDER, SINGLE EPISODE, UNSPECIFIED Qualifiers: Major depression recurrence: single episode Active/Remission status: currently active Major depression episode severity: moderate Assessment/Plan The patient is a pleasant man who has experienced significant losses ( his parents, brother). His own diagnosis which according to the patient may have been wrong is also a major contributing factor to his mood and anxiety. He stated that he was diagnosed initially with MS but was advised that it may be another neurological condition. He experiences significant pain, has difficulty ambulating, experiences unsteadiness when ambulating, anxiety over his condition and depression over his losses as well. Hypnosis for pain and psychotherapy will be administered to the patient. Treatment will be provided while he remains at this facility.
--- NOTE | 2018-11-04 16:22 | PN ---
Progress Note (short form) - Note Progress Note: 43 year old man with a PMH of MS (was on tecfidera, intermittent compliance for the past 6 months), who was sent by me first time yesetrday in office for further management for MS. The patient reports hes been having 6 months of worsening blurry vision, weakness, lower extremity numbness-tingling, and urinary incontinence. Patient moved to [place] about 6 months ago from [place] and hasd been on Tecfidera sincve 2012 but ran out of RX apx 2 months ago. Denies fever, chills, nausea, vomiting, diarrhea, dysuria or hematuria. Denies alcohol abuse or use of illicit drugs. Nonsmoker. ++ walking disability, and now needs cane. 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 No evidence of cervical disc herniation or cord compression. Impression: Extensive demyelinating disease both cerebral hemispheres prominent centrum semiovale. No evidence acute infarct No suspicious enhancing active demyelinating plaques. No evidence acute intracerebral hemorrhage, subdural fluid collection or hydrocephalus. Large left maxillary sinus submucosal retention cyst sequela of sinusitis. Please note no prior MRI of the brain available for comparison when available an addendum will be dictated.. - Alcohol/Substance Use Hx Alcohol Use: No - Smoking History Smoking history: Never smoked Have you smoked in the past 12 months: No Home Medications - Allergies Allergies/Adverse Reactions: Allergies Allergy/AdvReac Type Severity Reaction Status Date / Time No Known Allergies Allergy Verified 10/31/18 20:42 Physical Exam-Neuro Vital Signs: Vital Signs Temperature 97.8 F 11/04/18 13:31 Pulse Rate 74 11/04/18 13:31 Respiratory Rate 18 11/04/18 13:31 Blood Pressure 140/81 11/04/18 13:31 O2 Sat by Pulse Oximetry (%) 95 11/04/18 09:00 Constitutional: Yes: Well Nourished, No Distress Labs: CBCD WBC 4.8 K/mm3 (4.0-10.0) 11/01/18 06:20 RBC 4.89 M/mm3 (4.00-5.60) 11/01/18 06:20 Hgb 14.8 GM/dL (11.7-16.9) 11/01/18 06:20 Hct 43.6 % (35.4-49) 11/01/18 06:20 MCV 89.2 fl (80-96) 11/01/18 06:20 MCHC 34.0 g/dl (32.0-35.9) 11/01/18 06:20 RDW 12.8 % (11.9-15.9) 11/01/18 06:20 Plt Count 293 K/MM3 (134-434) 11/01/18 06:20 MPV 7.1 fl (7.5-11.1) L D 11/01/18 06:20 CMP Sodium 138 mmol/L (136-145) 11/01/18 06:20 Potassium 4.1 mmol/L (3.5-5.1) 11/01/18 06:20 Chloride 104 mmol/L (98-107) 11/01/18 06:20 Carbon Dioxide 28 mmol/L (21-32) 11/01/18 06:20 Anion Gap 5 MMOL/L (8-16) L 11/01/18 06:20 BUN 13.6 mg/dL (7-18) 11/01/18 06:20 Creatinine 1.1 mg/dL (0.55-1.3) 11/01/18 06:20 Calcium 9.4 mg/dL (8.5-10.1) 11/01/18 06:20 Total Bilirubin 0.9 mg/dL (0.2-1) 11/01/18 06:20 AST 19 U/L (15-37) 11/01/18 06:20 ALT 45 U/L (13-61) 11/01/18 06:20 Alkaline Phosphatase 94 U/L (45-117) 11/01/18 06:20 Total Protein 7.0 g/dl (6.4-8.2) 11/01/18 06:20 Albumin 4.2 g/dl (3.4-5.0) 11/01/18 06:20 - Neuro Exam Level Of Consciousness: Yes: Alert, Oriented to Person (EOmi, no facial, motor 5 /5, inc tone in legs, L >R, brisk reflexes , and requires assitance when he walks ) Problem List - Problems (1) Multiple sclerosis exacerbation Code(s): G35 - MULTIPLE SCLEROSIS (2) Gait abnormality Code(s): R26.9 - UNSPECIFIED ABNORMALITIES OF GAIT AND MOBILITY Assessment/Plan 43 year old man with a PMH of MS (was on tecfidera, intermittent compliance for the past 6 months), who was sent by me first time yesetrday in office for further management for MS. The patient reports hes been having 6 months of worsening blurry vision, weakness, lower extremity numbness-tingling, and urinary incontinence. Patient moved to [place] about 6 months ago from [place] and hasd been on Tecfidera sincve 2012 but ran out of RX apx 2 months ago. Denies fever, chills, nausea, vomiting, diarrhea, dysuria or hematuria. Denies alcohol abuse or use of illicit drugs. Nonsmoker. ++ walking disability, and now needs cane. 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 started on SOlumedrol IV 250IV q6 x 5 days MRI BRAIN, C , T spine with VANDA--multifocal diffuse signal chnages in MRI C spine more suggestive of NMO disease await T spine and get MRI LS SPINE --r/o DJD factors for low back pain , premeditate with valium , also check XRAY LEFT HIP cont gabapentin 600BID , add pamelor 50 mg poqd, tramadol for pain JCV titers, NMO AB, TSH, SKY , ESR, LYme --P rehab as out pt will decide which immunomodulator to restart Ocreveus vs Mayzent vs Tyzabri DR DAVIS Problem List - Problems (1) Multiple sclerosis exacerbation Code(s): G35 - MULTIPLE SCLEROSIS (2) Gait abnormality Code(s): R26.9 - UNSPECIFIED ABNORMALITIES OF GAIT AND MOBILITY
[2018-11-04] MEDS: traMADol HCL 50 MG TABLET PO PRN (17:24)
[2018-11-04] MEDS ORDERED: NORTRIPTYLINE HCL 50 MG CAPSULE PO SCH (17:30)
[2018-11-04] MEDS ORDERED: PT OWN MED DRAWER 7, Y5N ONE (18:35)
[2018-11-04] MEDS: NORTRIPTYLINE HCL 25 MG CAPSULE PO SCH (18:38)
[2018-11-04] MEDS ORDERED: diazePAM 5 MG TABLET PO ONE (19:42)
[2018-11-05] MEDS: methylPREDNISolone NA SUCC 125 MG/2 ML VIAL IVPB SCH ×3 (04:00→14:56)
[2018-11-05 07:59] LABS: HEMATOCRIT 43.7 % (35.4-49); HEMOGLOBIN 15.1 GM/dL (11.7-16.9); MCH 30.6 pg (25.7-33.7); MCHC 34.5 g/dl (32.0-35.9); MEAN CELL VOLUME 88.7 fl (80-96); MEAN PLT VOLUME 7.5 fl (7.5-11.1); MONO % 2.7 % (3.8-10.2); NEUT % 89.3 % (42.8-82.8); PLATELET COUNT 280 K/MM3 (134-434); RBC 4.93 M/mm3 (4.00-5.60); WHITE BLOOD COUNT 8.7 K/mm3 (4.0-10.0)
[2018-11-05 08:04] LABS: BLOOD UREA NITROGEN 18.6 mg/dL (7-18); CALCIUM 8.8 mg/dL (8.5-10.1)
[2018-11-05] MEDS: traMADol HCL 50 MG TABLET PO PRN ×2 (08:21→18:37)
[2018-11-05] MEDS ORDERED: PT OWN MED DRAWER 7, Y5N ONE ×3 (08:50→22:13)
[2018-11-05] MEDS: PANTOPRAZOLE 40 MG TABLET (FP) PO SCH (09:24)
[2018-11-05] MEDS: ENOXAPARIN NA (PORCINE) 40 MG/0.4 ML DISP.SYRIN SQ SCH (09:24)
[2018-11-05] MEDS: GABAPENTIN 300 MG CAPSULE (FP) PO SCH ×2 (09:24→22:07)
[2018-11-05] MEDS: NORTRIPTYLINE HCL 25 MG CAPSULE PO SCH (09:25)
--- NOTE | 2018-11-05 10:35 | PN ---
Teaching Attending Note Name of Resident: Leonard Henry ATTENDING PHYSICIAN STATEMENT I saw and evaluated the patient. I reviewed the resident's note and discussed the case with the resident. I agree with the resident's findings and plan as documented. Seen and examined; please refer to resident note for further historical information. Briefly, this is a 43 y/o male with MS (intermittent compliance with no Rx x2 months for tecfidera). He is completing his course of IV steroids today. Continues to improve. Needs rehab referral. VS, labs, imaging reviewed NAD, AAO, resting in bed NC AT EOMI PERRLA RRR s1/2 Moves all 4 extremities, fluid speech, no distotions in sensorium XR L-hip negative for fx MRI L and T spine reviewed; mutliple levels with demyelation without active issues. NMO Ab is pending; SKY, ESR negative. TSH pending ASSESSMENT AND PLAN: Patient with history of MS complicated by intermittent compiance with tecfidera ; completing steroids, following up NMO Ab. Symptoms improved; discussing disposition with neurology. -MS (Completing IV steroids, reviewed imaging. Discussing dispo with neuro. Rehav eval. Will need close followup as OP to decide on immunomodulators ( ocreveus vs. mayzent vs. tyzabri). Following up MARY ELLEN serology, NMA Ab, TSH. ESR and SKY negative. Appreciate neuro input). -Chronic Pain (Continue gabapentin 600 BID, pamelor 50 mg qd, tramadol; controlled) -Physical Deconditioning (Rehab eval) -Neutrophilia (likely 2/2 steroids)
--- NOTE | 2018-11-05 10:36 | PN ---
Progress Note (short form) - Note Progress Note: 43 year old man with a PMH of MS (was on tecfidera, intermittent compliance for the past 6 months), who was sent by me first time yesetrday in office for further management for MS. The patient reports hes been having 6 months of worsening blurry vision, weakness, lower extremity numbness-tingling, and urinary incontinence. Patient moved to [place] about 6 months ago from [place] and hasd been on Tecfidera sincve 2012 but ran out of RX apx 2 months ago. Denies fever, chills, nausea, vomiting, diarrhea, dysuria or hematuria. Denies alcohol abuse or use of illicit drugs. Nonsmoker. ++ walking disability, and now needs cane. 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 No evidence of cervical disc herniation or cord compression. Impression: Extensive demyelinating disease both cerebral hemispheres prominent centrum semiovale. No evidence acute infarct No suspicious enhancing active demyelinating plaques. No evidence acute intracerebral hemorrhage, subdural fluid collection or hydrocephalus. Large left maxillary sinus submucosal retention cyst sequela of sinusitis. Please note no prior MRI of the brain available for comparison when available an addendum will be dictated.. - Alcohol/Substance Use Hx Alcohol Use: No - Smoking History Smoking history: Never smoked Have you smoked in the past 12 months: No Home Medications - Allergies Allergies/Adverse Reactions: Allergies Allergy/AdvReac Type Severity Reaction Status Date / Time No Known Allergies Allergy Verified 10/31/18 20:42 Physical Exam-Neuro Vital Signs: Vital Signs Temperature 97.5 F L 11/05/18 06:00 Pulse Rate 66 11/05/18 06:00 Respiratory Rate 18 11/05/18 06:00 Blood Pressure 111/69 11/05/18 06:00 O2 Sat by Pulse Oximetry (%) 99 11/04/18 21:00 Constitutional: Yes: Well Nourished, No Distress Labs: CBCD WBC 8.7 K/mm3 (4.0-10.0) 11/05/18 06:30 RBC 4.93 M/mm3 (4.00-5.60) 11/05/18 06:30 Hgb 15.1 GM/dL (11.7-16.9) 11/05/18 06:30 Hct 43.7 % (35.4-49) 11/05/18 06:30 MCV 88.7 fl (80-96) 11/05/18 06:30 MCHC 34.5 g/dl (32.0-35.9) 11/05/18 06:30 RDW 13.0 % (11.9-15.9) 11/05/18 06:30 Plt Count 280 K/MM3 (134-434) 11/05/18 06:30 MPV 7.5 fl (7.5-11.1) 11/05/18 06:30 CMP Sodium 142 mmol/L (136-145) 11/05/18 06:30 Potassium 4.0 mmol/L (3.5-5.1) 11/05/18 06:30 Chloride 101 mmol/L (98-107) 11/05/18 06:30 Carbon Dioxide 31 mmol/L (21-32) 11/05/18 06:30 Anion Gap 10 MMOL/L (8-16) 11/05/18 06:30 BUN 18.6 mg/dL (7-18) H 11/05/18 06:30 Creatinine 1.0 mg/dL (0.55-1.3) 11/05/18 06:30 Calcium 8.8 mg/dL (8.5-10.1) 11/05/18 06:30 Total Bilirubin 0.9 mg/dL (0.2-1) 11/01/18 06:20 AST 19 U/L (15-37) 11/01/18 06:20 ALT 45 U/L (13-61) 11/01/18 06:20 Alkaline Phosphatase 94 U/L (45-117) 11/01/18 06:20 Total Protein 7.0 g/dl (6.4-8.2) 11/01/18 06:20 Albumin 4.2 g/dl (3.4-5.0) 11/01/18 06:20 - Neuro Exam Level Of Consciousness: Yes: Alert, Oriented to Person (EOmi, no facial, motor 5 /5, inc tone in legs, L >R, brisk reflexes , and requires assitance when he walks ) Problem List - Problems (1) Multiple sclerosis exacerbation Code(s): G35 - MULTIPLE SCLEROSIS (2) Gait abnormality Code(s): R26.9 - UNSPECIFIED ABNORMALITIES OF GAIT AND MOBILITY Assessment/Plan 43 year old man with a PMH of MS (was on tecfidera, intermittent compliance for the past 6 months), who was sent by me first time yesetrday in office for further management for MS. The patient reports hes been having 6 months of worsening blurry vision, weakness, lower extremity numbness-tingling, and urinary incontinence. Patient moved to [place] about 6 months ago from [place] and hasd been on Tecfidera sincve 2012 but ran out of RX apx 2 months ago. Denies fever, chills, nausea, vomiting, diarrhea, dysuria or hematuria. Denies alcohol abuse or use of illicit drugs. Nonsmoker. ++ walking disability, and now needs cane. 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 started on SOlumedrol IV 250IV q6 x 5 days --complete today , continues to have hemiplegic gait and unsteady MRI BRAIN, C , T spine with VANDA--multifocal diffuse signal chnages in MRI C spine more suggestive of NMO disease cont gabapentin 600BID , cont pamelor 50 mg poqd, tramadol for pain JCV titers, NMO AB, TSH, SKY , ESR, LYme --P will need rehab , media planner aware as out pt will decide which immunomodulator to restart Ocreveus vs Mayzent vs Tyzabri DR DAVIS Problem List - Problems (1) Multiple sclerosis exacerbation Code(s): G35 - MULTIPLE SCLEROSIS (2) Gait abnormality Code(s): R26.9 - UNSPECIFIED ABNORMALITIES OF GAIT AND MOBILITY
[2018-11-05] MEDS: POLYETHYLENE GLYCOL 3350 119 GM BTL PO SCH ×2 (10:49→22:07)
[2018-11-05] MEDS: DOCUSATE SODIUM 100 MG CAPSULE (FP) PO SCH ×2 (14:56→22:07)
--- NOTE | 2018-11-05 21:47 | PN ---
Physical Exam: SUBJECTIVE: atient seen and examined at bedside. Improving. OBJECTIVE: Vital Signs Period Temp Pulse Resp BP Sys/Wong Pulse Ox Last 24 Hr 97.5 F-98.9 F 66-92 18-20 111-148/69-97 99 GEN: NAD, AAOx3 HEENT: NCAT, EOMI Neck: supple, no jvd Cardio: RRR, normal s1s2, no mrg Pulm: cta b/l Abd: soft, nontender, nondistended Ext: 2+ pulses, no edema Laboratory Results - last 24 hr 11/03/18 11/05/18 11/05/18 06:18 06:30 06:30 WBC 8.7 RBC 4.93 Hgb 15.1 Hct 43.7 MCV 88.7 MCH 30.6 MCHC 34.5 RDW 13.0 Plt Count 280 MPV 7.5 Absolute Neuts (auto) 7.8 Neutrophils % 89.3 H Lymphocytes % 8.0 D Monocytes % 2.7 L D Eosinophils % 0.0 Basophils % 0.0 Nucleated RBC % 0 Sodium 142 Potassium 4.0 Chloride 101 Carbon Dioxide 31 Anion Gap 10 BUN 18.6 H Creatinine 1.0 Est GFR (CKD-EPI)AfAm 104.88 Est GFR (CKD-EPI)NonAf 90.49 Random Glucose 122 H Calcium 8.8 TSH 0.24 L Free T4 0.83 Neuromyelitis Optica Ab < 2 Active Medications Generic Name Dose Route Start Last Admin Trade Name Freq PRN Reason Stop Dose Admin Acetaminophen 650 mg 11/01/18 14:43 11/04/18 12:08 Tylenol - PO 650 mg Q6H PRN Administration HEADACHE Al Hydroxide/Mg Hydroxide 30 ml 11/02/18 10:03 11/02/18 19:31 Mylanta Oral Suspension - PO 30 ml Q6H PRN Administration DYSPEPSIA Docusate Sodium 100 mg 11/05/18 14:00 11/05/18 14:56 Colace - PO 100 mg TID ARLENE Administration Enoxaparin Sodium 40 mg 11/01/18 10:00 11/05/18 09:24 Lovenox - SQ 40 mg DAILY ARLNEE Administration Gabapentin 600 mg 11/04/18 10:00 11/05/18 09:24 Neurontin - PO 600 mg BID ARLENE Administration Lorazepam 0.25 mg 09/02/19 11:58 Ativan Injection - IVPUSH 11/03/18 11:59 ONCE ONE Melatonin 3 mg 11/01/18 04:04 11/04/18 22:56 Melatonin PO 3 mg HS PRN Administration INSOMNIA Nortriptyline HCl 50 mg 11/04/18 17:30 11/05/18 09:25 Pamelor - PO 50 mg DAILY ARLENE Administration Pantoprazole Sodium 40 mg 11/02/18 10:00 11/05/18 09:24 Protonix - PO 40 mg DAILY ARLENE Administration Polyethylene Glycol 17 gm 11/05/18 10:15 11/05/18 10:49 Miralax (For Daily Use) - PO 17 grams BID ARLENE Administration Tramadol HCl 50 mg 11/04/18 16:24 11/05/18 18:37 Ultram - PO 50 mg Q8H PRN Administration PAIN LEVEL 4 - 6 ASSESSMENT/PLAN: 43M with hx of MS diagnosis in 2010, presenting with worsening blurry vision, imbalance, weakness, urinary incontinence/retention. Recently moved from [place] and established care with Dr. Eckert (neurologist) today. # MS/NMO Flare - Neuro on board, Dr. Eckert - Neuro checks q6h - Brain MRI and Cervical / Thoracic spine MRI with contrast showing extensive lesions -Neuromyelitis Optica screen pending -Lyme pending #Insomnia -Melatonin qHS for sleep #FEN - PO fluids - replete lytes PRN - regular diet #PPx - Lovenox 40mg SQ daily, encourage ambulation # Dispo: admit to med-surg . Pending SNF Visit type - Emergency Visit Emergency Visit: No - New Patient This patient is new to me today: No - Critical Care Critical Care patient: No ATTENDING PHYSICIAN STATEMENT I saw and evaluated the patient. I reviewed the resident's note and discussed the case with the resident. I agree with the resident's findings and plan as documented. SUBJECTIVE: OBJECTIVE: ASSESSMENT AND PLAN:
[2018-11-05] MEDS: MELATONIN 1 MG TABLET PO PRN (22:15)
[2018-11-06] MEDS: DOCUSATE SODIUM 100 MG CAPSULE (FP) PO SCH ×3 (06:45→23:00)
[2018-11-06 08:17] LABS: BLOOD UREA NITROGEN 18.2 mg/dL (7-18); CALCIUM 8.3 mg/dL (8.5-10.1); CREATININE 0.9 mg/dL (0.55-1.3)
[2018-11-06 08:30] LABS: HEMATOCRIT 41.4 % (35.4-49); HEMOGLOBIN 14.3 GM/dL (11.7-16.9); MCH 30.6 pg (25.7-33.7); MCHC 34.6 g/dl (32.0-35.9); MEAN CELL VOLUME 88.5 fl (80-96); MEAN PLT VOLUME 7.1 fl (7.5-11.1); PLATELET COUNT 279 K/MM3 (134-434); RBC 4.68 M/mm3 (4.00-5.60); RDW 12.9 % (11.9-15.9); WHITE BLOOD COUNT 10.4 K/mm3 (4.0-10.0)
[2018-11-06] MEDS: GABAPENTIN 300 MG CAPSULE (FP) PO SCH ×2 (10:24→23:00)
[2018-11-06] MEDS: NORTRIPTYLINE HCL 25 MG CAPSULE PO SCH (10:24)
[2018-11-06] MEDS: traMADol HCL 50 MG TABLET PO PRN ×2 (10:24→18:58)
[2018-11-06] MEDS: ENOXAPARIN NA (PORCINE) 40 MG/0.4 ML DISP.SYRIN SQ SCH (10:24)
[2018-11-06] MEDS: PANTOPRAZOLE 40 MG TABLET (FP) PO SCH (10:24)
[2018-11-06] MEDS: POLYETHYLENE GLYCOL 3350 119 GM BTL PO SCH ×2 (10:25→23:17)
--- NOTE | 2018-11-06 11:05 | PN ---
Teaching Attending Note Name of Resident: Leonard Henry ATTENDING PHYSICIAN STATEMENT I saw and evaluated the patient. I reviewed the resident's note and discussed the case with the resident. I agree with the resident's findings and plan as documented. Seen and examined; please refer to resident note for further historical information. He is doing well today and pendign rehab; leukocytosis noted but no fevers and this is likely 2/2 steroids. VS, labs, imaging reviewed NAD, AAO, resting in bed NC AT EOMI PERRLA RRR s1/2 Moves all 4 extremities, fluid speech, no distotions in sensorium NT ND +BS Normal mood, appropriate affect XR L-hip negative for fx MRI L and T spine reviewed NMO Ab neg; lyme neg, MARY ELLEN neg ASSESSMENT AND PLAN: Patient with history of MS complicated by intermittent compiance with tecfidera ; completing steroids, following up NMO Ab. Symptoms improved; discussing disposition with neurology. -MS (Completed IV steroid burst; pending rehab placement due to his profound deconditioning. Will need close followup as OP to decide on immunomodulators ( ocreveus vs. mayzent vs. tyzabri). Aformentioned serology noted negative. Appreciate neuro input). -Chronic Pain (Continue gabapentin 600 BID, pamelor 50 mg qd, tramadol; controlled) -Physical Deconditioning (Rehab) -Neutrophilia (likely 2/2 steroids) Followup: -PCP 3-5 days (can arrange with resident clinic) -Neuro within 1 week Dispo: Rehab 45 mins spent preparing
--- NOTE | 2018-11-06 14:10 | PN ---
Progress Note (short form) - Note Progress Note: Lonny was troubled by his peripheral neuropathic symptoms and pain. He seemed anxious about the possible diagnosis of a neurological condition that is progressive and potentially lethal. His MS is also a major concern. In addition , we talked about the losses of family members and his mom in particular. A deep diaphragmatic breathing technique was taught to the patient. In addition, Cognitive Behavioral intervention was used with him and he was advised to use these approaches for his anxiety and depression. Problem List - Problems (1) Anxiety about health Code(s): F41.8 - OTHER SPECIFIED ANXIETY DISORDERS (2) Depression Code(s): F32.9 - MAJOR DEPRESSIVE DISORDER, SINGLE EPISODE, UNSPECIFIED Qualifiers: Major depression recurrence: single episode Active/Remission status: currently active Major depression episode severity: moderate
--- NOTE | 2018-11-06 21:30 | PN ---
Physical Exam: SUBJECTIVE: Patient seen and examined at bedside. Spoke with AMALIA YI. OBJECTIVE: Vital Signs Period Temp Pulse Resp BP Sys/Wong Pulse Ox Last 24 Hr 97.6 F-98.2 F 81-90 16-18 102-149/58-105 100 GEN: NAD, AAOx3 HEENT: NCAT, EOMI Neck: supple, no jvd Cardio: RRR, normal s1s2, no mrg Pulm: cta b/l Abd: soft, nontender, nondistended Ext: 2+ pulses, no edema Laboratory Results - last 24 hr 11/02/18 11/03/18 11/06/18 11:20 06:18 06:45 WBC 10.4 H RBC 4.68 Hgb 14.3 Hct 41.4 MCV 88.5 MCH 30.6 MCHC 34.6 RDW 12.9 Plt Count 279 MPV 7.1 L Sodium Potassium Chloride Carbon Dioxide Anion Gap BUN Creatinine Est GFR (CKD-EPI)AfAm Est GFR (CKD-EPI)NonAf Random Glucose Calcium Lyme IgM 23 kDa Band No Result Required. Lyme IgM 39 kDa Band No Result Required. Lyme IgM 41 kDa Band No Result Required. MARY ELLEN Virus DNA (PCR) Negative 11/06/18 06:45 WBC RBC Hgb Hct MCV MCH MCHC RDW Plt Count MPV Sodium 141 Potassium 4.0 Chloride 102 Carbon Dioxide 29 Anion Gap 10 BUN 18.2 H Creatinine 0.9 Est GFR (CKD-EPI)AfAm 119.13 Est GFR (CKD-EPI)NonAf 102.79 Random Glucose 119 H Calcium 8.3 L Lyme IgM 23 kDa Band Lyme IgM 39 kDa Band Lyme IgM 41 kDa Band MARY ELLEN Virus DNA (PCR) Active Medications Generic Name Dose Route Start Last Admin Trade Name Freq PRN Reason Stop Dose Admin Acetaminophen 650 mg 11/01/18 14:43 11/04/18 12:08 Tylenol - PO 650 mg Q6H PRN Administration HEADACHE Al Hydroxide/Mg Hydroxide 30 ml 11/02/18 10:03 11/02/18 19:31 Mylanta Oral Suspension - PO 30 ml Q6H PRN Administration DYSPEPSIA Docusate Sodium 100 mg 11/05/18 14:00 11/06/18 14:10 Colace - PO 100 mg TID ARLENE Administration Enoxaparin Sodium 40 mg 11/01/18 10:00 11/06/18 10:24 Lovenox - SQ 40 mg DAILY ARLENE Administration Gabapentin 600 mg 11/04/18 10:00 11/06/18 10:24 Neurontin - PO 600 mg BID ARLENE Administration Lorazepam 0.25 mg 11/03/18 11:58 Ativan Injection - IVPUSH 11/03/18 11:59 ONCE ONE Melatonin 3 mg 11/01/18 04:04 11/05/18 22:15 Melatonin PO 3 mg HS PRN Administration INSOMNIA Nortriptyline HCl 50 mg 11/04/18 17:30 11/06/18 10:24 Pamelor - PO 50 mg DAILY ARLENE Administration Pantoprazole Sodium 40 mg 11/02/18 10:00 11/06/18 10:24 Protonix - PO 40 mg DAILY ARLENE Administration Polyethylene Glycol 17 gm 11/05/18 10:15 11/06/18 10:25 Miralax (For Daily Use) - PO 17 grams BID ARLENE Administration ASSESSMENT/PLAN: 43M with hx of MS diagnosis in 2010, presenting with worsening blurry vision, imbalance, weakness, urinary incontinence/retention. Recently moved from [place] and established care with Dr. Eckert (neurologist) today. # MS/NMO Flare - Neuro on board, Dr. Eckert - Neuro checks q6h - Brain MRI and Cervical / Thoracic spine MRI with contrast showing extensive lesions -Neuromyelitis Optica screen negative -Lyme negative -pt very anxious about sudden and severe pain associated with movement #Insomnia -Melatonin qHS for sleep #FEN - PO fluids - replete lytes PRN - regular diet #PPx - Lovenox 40mg SQ daily, encourage ambulation # Dispo: admit to med-surg . Pending SNF Visit type - Emergency Visit Emergency Visit: No - New Patient This patient is new to me today: No - Critical Care Critical Care patient: No ATTENDING PHYSICIAN STATEMENT I saw and evaluated the patient. I reviewed the resident's note and discussed the case with the resident. I agree with the resident's findings and plan as documented. SUBJECTIVE: OBJECTIVE: ASSESSMENT AND PLAN:
[2018-11-06] MEDS: ACETAMINOPHEN 325 MG TABLET (FP) PO PRN (23:17)
[2018-11-07] MEDS ORDERED: PT OWN MED DRAWER 7, Y5N ONE ×2 (00:55→09:06)
[2018-11-07] MEDS: MELATONIN 1 MG TABLET PO PRN (01:00)
[2018-11-07] MEDS: DOCUSATE SODIUM 100 MG CAPSULE (FP) PO SCH (05:43)
[2018-11-07 07:48] LABS: HEMATOCRIT 41.7 % (35.4-49); HEMOGLOBIN 14.3 GM/dL (11.7-16.9); MCH 30.8 pg (25.7-33.7); MCHC 34.2 g/dl (32.0-35.9); MEAN CELL VOLUME 90.1 fl (80-96); MEAN PLT VOLUME 6.9 fl (7.5-11.1); PLATELET COUNT 237 K/MM3 (134-434); RBC 4.63 M/mm3 (4.00-5.60); RDW 12.8 % (11.9-15.9); WHITE BLOOD COUNT 5.9 K/mm3 (4.0-10.0)
[2018-11-07 08:06] LABS: BLOOD UREA NITROGEN 19.6 mg/dL (7-18); CALCIUM 7.8 mg/dL (8.5-10.1); CREATININE 1.1 mg/dL (0.55-1.3); POTASSIUM 3.7 mmol/L (3.5-5.1)
[2018-11-07] MEDS: GABAPENTIN 300 MG CAPSULE (FP) PO SCH (09:49)
[2018-11-07] MEDS: PANTOPRAZOLE 40 MG TABLET (FP) PO SCH (09:49)
[2018-11-07] MEDS: NORTRIPTYLINE HCL 25 MG CAPSULE PO SCH (09:49)
[2018-11-07] MEDS: ENOXAPARIN NA (PORCINE) 40 MG/0.4 ML DISP.SYRIN SQ SCH (09:49)
[2018-11-07] MEDS: POLYETHYLENE GLYCOL 3350 119 GM BTL PO SCH (09:50)
--- NOTE | 2018-11-07 11:02 | PN ---
Progress Note (short form) - Note Progress Note: 43 year old man with a PMH of MS (was on tecfidera, intermittent compliance for the past 6 months), who was sent by me first time yesetrday in office for further management for MS. The patient reports hes been having 6 months of worsening blurry vision, weakness, lower extremity numbness-tingling, and urinary incontinence. [place] moved to [place] ago from [place] and hasd been on Tecfidera sincve 2012 but ran out of RX apx 2 months ago. Denies fever, chills, nausea, vomiting, diarrhea, dysuria or hematuria. Denies alcohol abuse or use of illicit drugs. Nonsmoker. ++ walking disability, and now needs cane. 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 No evidence of cervical disc herniation or cord compression. Impression: Extensive demyelinating disease both cerebral hemispheres prominent centrum semiovale. No evidence acute infarct No suspicious enhancing active demyelinating plaques. No evidence acute intracerebral hemorrhage, subdural fluid collection or hydrocephalus. Large left maxillary sinus submucosal retention cyst sequela of sinusitis. Please note no prior MRI of the brain available for comparison when available an addendum will be dictated.. - Alcohol/Substance Use Hx Alcohol Use: No - Smoking History Smoking history: Never smoked Have you smoked in the past 12 months: No Home Medications - Allergies Allergies/Adverse Reactions: Allergies Allergy/AdvReac Type Severity Reaction Status Date / Time No Known Allergies Allergy Verified 10/31/18 20:42 Physical Exam-Neuro Vital Signs: Vital Signs Temperature 97.3 F L 11/07/18 06:00 Pulse Rate 62 11/07/18 06:00 Respiratory Rate 16 11/07/18 06:00 Blood Pressure 119/79 11/07/18 06:00 O2 Sat by Pulse Oximetry (%) 99 11/06/18 21:00 Constitutional: Yes: Well Nourished, No Distress Labs: CBCD WBC 8.7 K/mm3 (4.0-10.0) 11/05/18 06:30 RBC 4.93 M/mm3 (4.00-5.60) 11/05/18 06:30 Hgb 15.1 GM/dL (11.7-16.9) 11/05/18 06:30 Hct 43.7 % (35.4-49) 11/05/18 06:30 MCV 88.7 fl (80-96) 11/05/18 06:30 MCHC 34.5 g/dl (32.0-35.9) 11/05/18 06:30 RDW 13.0 % (11.9-15.9) 11/05/18 06:30 Plt Count 280 K/MM3 (134-434) 11/05/18 06:30 MPV 7.5 fl (7.5-11.1) 11/05/18 06:30 CMP Sodium 142 mmol/L (136-145) 11/05/18 06:30 Potassium 4.0 mmol/L (3.5-5.1) 11/05/18 06:30 Chloride 101 mmol/L (98-107) 11/05/18 06:30 Carbon Dioxide 31 mmol/L (21-32) 11/05/18 06:30 Anion Gap 10 MMOL/L (8-16) 11/05/18 06:30 BUN 18.6 mg/dL (7-18) H 11/05/18 06:30 Creatinine 1.0 mg/dL (0.55-1.3) 11/05/18 06:30 Calcium 8.8 mg/dL (8.5-10.1) 11/05/18 06:30 Total Bilirubin 0.9 mg/dL (0.2-1) 11/01/18 06:20 AST 19 U/L (15-37) 11/01/18 06:20 ALT 45 U/L (13-61) 11/01/18 06:20 Alkaline Phosphatase 94 U/L (45-117) 11/01/18 06:20 Total Protein 7.0 g/dl (6.4-8.2) 11/01/18 06:20 Albumin 4.2 g/dl (3.4-5.0) 11/01/18 06:20 - Neuro Exam Level Of Consciousness: Yes: Alert, Oriented to Person (EOmi, no facial, motor 5 /5, inc tone in legs, L >R, brisk reflexes , and requires assitance when he walks ) Problem List - Problems (1) Multiple sclerosis exacerbation Code(s): G35 - MULTIPLE SCLEROSIS (2) Gait abnormality Code(s): R26.9 - UNSPECIFIED ABNORMALITIES OF GAIT AND MOBILITY Assessment/Plan 43 year old man with a PMH of MS (was on tecfidera, intermittent compliance for the past 6 months), who was sent by me first time yesetrday in office for further management for MS. The patient reports hes been having 6 months of worsening blurry vision, weakness, lower extremity numbness-tingling, and urinary incontinence. [place] moved [place] 6 [place] ago from [place] and hasd been on Tecfidera sincve 2012 but ran out of RX apx 2 months ago. Denies fever, chills, nausea, vomiting, diarrhea, dysuria or hematuria. Denies alcohol abuse or use of illicit drugs. Nonsmoker. ++ walking disability, and now needs cane. 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
[2018-11-07 12:14] VITALS: BP 124/79; PULSE 97; TEMP 98
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
--- NOTE | 2018-11-08 06:53 | PDOC ---
Documentation entered by Arina Palumbo SCRIBE, acting as scribe for Ling Garduno MD. Ling Garduno MD: This documentation has been prepared by the Linwood singletary Lincy, SCRIBE, under my direction and personally reviewed by me in its entirety. I confirm that the documentation accurately reflects all work, treatment, procedures, and medical decision making performed by me. Attending Attestation - Resident Resident Name: Mahad Barker - ED Attending Attestation I have performed the following: I have examined & evaluated the patient, The case was reviewed & discussed with the resident, I agree w/resident's findings & plan - HPI HPI: 10/31/18 22:15 The patient is a 43 year old male with a past medical history significant for MS (was on tecfidera, intermittent compliance for the past 6 months), who was sent to the emergency department by Dr. Eckert for admission for further management for MS. The patient reports hes been having 6 months of worsening blurry vision, weakness, lower extremity numbness-tingling, and urinary incontinence. The patient was seen at Dr. Davis office earlier today, from where he was sent to the emergency department for further management. The patient reports he moved to [place] about 6 months ago from [place] since then he s been poorly compliant with his medication. - Physicial Exam PE: 11/08/18 06:51 Agree [facility] resident exam - Medical Decision Making 11/08/18 06:51 Dr. Eckert is aware the patient is here. He is requesting that we order the MRI from the ER; to be done tomorrow. Pt has normal labs and is stable for admission. Meds given
== END 2018-11-07 11:52 | DRG 60 ==
LOC: JER 20:21 → JERBED 22:09 → J7W 11-01 00:53
PROVIDERS: ADMIT Internal Medicine; ATTEND Internal Medicine
DX: G35 Multiple sclerosis (principal); E66.3 Overweight; Z68.28 Body mass index [BMI] 28.0-28.9, adult; H53.8 Other visual disturbances; N39.498 Other specified urinary incontinence; R26.9 Unspecified abnormalities of gait and mobility; K21.9 Gastro-esophageal reflux disease without esophagitis; F32.9 Major depressive disorder, single episode, unspecified; E05.90 Thyrotoxicosis, unspecified without thyrotoxic crisis or storm; F41.8 Other specified anxiety disorders; G89.29 Other chronic pain; G47.00 Insomnia, unspecified
CPT/HCPCS: 36415; 70552-TC; 71046-TC-FY; 72142-TC; 72157-TC; 72158-TC; 73523-TC-FY; 80048; 80053; 81003; 83520; 83735; 84439; 84443; 85025; 85027; 85651; 86038; 86618; 87798; 93005; 93010; 97116-GP; 97161-GP; 99283-25; A9579; J0131